=== PATIENT | male | born 1970 | race Hispanic/Latino ===

== ENCOUNTER 2024-08-28 15:24 | Outpatient (CLI) | payer OTHER | END 2024-08-28 15:25 | disposition home or self-care (01) | LOC: CSHMRI 15:24 | PROVIDERS: ATTEND Orthopaedic Surgery | DX: M51.16 Intervertebral disc disorders with radiculopathy, lumbar region (principal); M48.061 Spinal stenosis, lumbar region without neurogenic claudication | CPT/HCPCS: 72148 ==